=== PATIENT | male | born 1990 | race Caucasian/White ===

== ENCOUNTER 2017-10-28 19:56 | Emergency (ER) | payer OTHER ==
[~2017-10-28] VITALS: Ht 182.9 cm; Wt 93.0 kg
--- OUTSIDE RECORDS SUMMARY | ~2017-10-28 | XMS | Clinical Summary ---
Demographics + + + | Address | [address] | | | [place] [address] | + + + | Home Phone | | + + + | Preferred Language | Unknown | + + + | Marital Status | Single | + + + | Protestant Affiliation | Unknown | + + + | Race | Unknown | + + + | Ethnic Group | Unknown | + + + Author + + + | Author | [facility] | | | and [place] | + + + | Organization | [facility] | | | and [place] | + + + | Address | Unknown | + + + | Phone | Unavailable | + + + Support + + +---------+ + | Name | Relationship | Address | Phone | + + +---------+ + | None,Per Patient | ECON | Unknown | | + + +---------+ + Care Team Providers + +------+ + | Care Engine Manager Name | Role | Phone | + +------+ + PP | Unavailable | + +------+ + Allergies Not on File Current Medications Not on file Active Problems Not on file Social History + +-------+ +--------+------+ | Tobacco Use | Types | Packs/Day | Years | Date | | | | | Used | | + +-------+ +--------+------+ | Never Assessed | | | | | + +-------+ +--------+------+ + + + | Sex Assigned at | Date Recorded | | | | + + + | Not on file | | + + + Plan of Treatment + + + + + | Health Maintenance | Due Date | Last Done | Comments | + + + + + | Vaccine: | | | | | Dtap/Tdap/Td (1 - | 9 | | | | Tdap) | | | | + + + + + | Vaccine: Influenza | | | | | (Season Ended) | 8 | | | + + + + + Results Not on filefrom Last 3 Months"
--- OUTSIDE RECORDS SUMMARY | ~2017-10-28 | XMS | Clinical Summary ---
Demographics + + + | Address | [address] | | | [place] [address] | + + + | Home Phone | | + + + | Preferred Language | Unknown | + + + | Marital Status | Single | + + + | Restorationism Affiliation | Unknown | + + + | Race | Unknown | + + + | Ethnic Group | Unknown | + + + Author + + + | Author | [facility] | | | and [place] | + + + | Organization | [facility] | | | and [place] | [...] Team Providers + +------+ + | Care Director Of Strategic Alliances Name | Role | Phone | + [...]
== END 2017-10-28 21:31 | disposition home or self-care (01) ==
LOC: ED 19:56
DX: T40.1X1A Poisoning by heroin, accidental (unintentional), initial encounter (principal); F17.200 Nicotine dependence, unspecified, uncomplicated
CPT/HCPCS: 99284

== ENCOUNTER 2017-12-13 23:55 | Emergency (ER) | payer OTHER ==
[~2017-12-13] VITALS: Ht 182.9 cm; Wt 93.0 kg
[2017-12-14] MEDS ORDERED: ZOFRAN ODT4 MG PO (05:29)
== END 2017-12-14 05:45 | disposition home or self-care (01) ==
LOC: ED 23:55
PROC: BT40ZZZ Ultrasonography of Bladder (ICD-10-PCS; principal; 2017-12-13)
DX: E86.0 Dehydration (principal); F17.200 Nicotine dependence, unspecified, uncomplicated
CPT/HCPCS: 51798; 80048; 80053; 81001; 85025; 86704; 86706; 86709; 86803; 87340; 96361; 96374; 96375; 99284; G0480; J2310; J2405; J7030

== ENCOUNTER 2019-03-19 12:16 | Emergency (ER) | payer OTHER ==
[~2019-03-19] VITALS: Ht 182.9 cm; Wt 93.0 kg
[~2019-03-19 12:16] MED LIST: ZOFRAN ODT4 MG PO
== END 2019-03-19 16:04 | disposition home or self-care (01) ==
LOC: ED 12:16
DX: Z00.8 Encounter for other general examination (principal); F17.200 Nicotine dependence, unspecified, uncomplicated
CPT/HCPCS: 80053; 80176; 81001; 84443; 85025; 96372; 99283; G0480; J2060

== ENCOUNTER 2020-09-19 12:08 | Emergency (ER) | payer OTHER ==
[~2020-09-19] VITALS: Ht 182.9 cm; Wt 68.0 kg
--- OUTSIDE RECORDS SUMMARY | 2020-09-19 12:12 | XMS ---
PreManage Notification: [facility] Security General I Farmworker Events No recent Security Events currently on file CRITERIA MET - ED - Positive COVID-19 Lab Result - [facility] Elisabeth Llamas Nurse Practitioner: Current PHONE: [phone] Aranza has no Care Guidelines for this patient. E.DDavid VISIT COUNT (12 MO.) 1 RUTH Morales TOTAL 1 NOTE: Visits indicate total known visits. ED/UCC VISIT TRACKING (12 MO.) 09/19/2020 12:09 [facility] Painter OR TYPE: Emergency COMPLAINT: - SHAKY, VOMITING, DIARRHEA INPATIENT VISIT TRACKING (12 MO.) No inpatient visits to display in this time frame [email or web address]
[2020-09-19] MEDS ORDERED: CLONIDINE HCL0.1 MG PO (12:20)
[2020-09-19] MEDS ORDERED: HYDROXYZINE HCL25 MG PO (12:21)
[2020-09-19] MEDS ORDERED: SUBOXONE 8 MG-1 EAC1 SL (12:21)
== END 2020-09-19 12:45 | disposition home or self-care (01) ==
LOC: ED 12:08
DX: F19.10 Other psychoactive substance abuse, uncomplicated (principal); R00.0 Tachycardia, unspecified; F17.200 Nicotine dependence, unspecified, uncomplicated; Z79.899 Other long term (current) drug therapy
CPT/HCPCS: 99283; 99406